=== PATIENT | female | born 1985 | race American Indian/Alaskan Native ===

== ENCOUNTER 2017-10-31 12:15 | Outpatient (CLI) | payer OTHER ==
[2017-10-31 13:13] VITALS: BP 120/77
--- NOTE | 2017-10-31 15:16 | Ultrasound Report ---
ULTRASOUND OB LIMITED History: well being, evaluate amniotic fluid Technique: Transabdominal ultrasound with Doppler interrogation. Gestation: Single Position: Cephalic Amniotic Fluid: Normal GRAHAM = 15.9 cm Heart Rate: 141 BPM
--- NOTE | 2017-10-31 15:16 | Ultrasound Report ---
ULTRASOUND BIOPHYSICAL PROFILE: History: well being Technique: Transabdominal ultrasound with Doppler interrogation. 2 - breathing movements 2 - movements 2 - posture and tone 2 - Qualitative amniotic fluid volume 8 - TOTAL SCORE OF POSSIBLE 8 Heart Rate (bpm) 141
== END 2017-10-31 14:55 | disposition home or self-care (01) ==
LOC: TRG 12:15
PROVIDERS: ATTEND Obstetrics & Gynecology
DX: O47.1 False labor at or after 37 completed weeks of gestation (principal); Z3A.39 39 weeks gestation of pregnancy
CPT/HCPCS: 59025; 76815; 76819

== ENCOUNTER 2017-11-01 19:45 | Inpatient (IN) | payer OTHER ==
--- NOTE | 2017-11-01 20:11 | History and Physical Report ---
History of Present Illness Date of examination: 11/01/17 Date of admission: 11/01/17 20:01 Chief complaint: Labor History of present illness: Pt is a 32yo BF EDC 11/04/17; EGA 39 4/7 weeks presents to L&D complaining of SROM clear fluid @ 5pm followed by RUC's q 3-4 mins. She received late care at [facility] , and course was unremarkable. records are available and GBS is Negative. Past History Past Medical History: no pertinent history Past Surgical History: no surgical history CASE CHECKER History: abnormal PAP smear Family/Genetic History: none Social history: no significant social history, single - Obstetrical History Expected Date of Delivery: 11/04/17 Actual Gestation: 39 Week(s) 4 Day(s) : 2 Medications and Allergies Allergies Allergy/AdvReac Type Severity Reaction Status Date / Time No Known Allergies Allergy Unverified 10/31/17 12:29 Home Medications Medication Instructions Recorded Confirmed Last Taken Type Pnv No.95/Ferrous Fum/Folic AC 1 each PO DAILY 10/31/17 10/31/17 Unknown History [Prenavite Tablet] Review of Systems All systems: negative - Physical Exam Breasts: Positive: deferred Cardiovascular: Regular rate Lungs: Positive: Clear to auscultation Abdomen: Positive: normal appearance Genitourinary (Female): Positive: normal external genitalia Vagina: Positive: normal moisture Uterus: Positive: enlarged Extremities: Positive: normal - Obstetrical FHR: category 1 Uterine Contraction Monitor Mode: External Cervical Dilatation: 10 Cervical Effacement Percentage: 100 station: +1 Uterine Contraction Pattern: Regular Uterine Tone Measurement Phase: Contraction Uterine Contraction Intensity: Moderate Results All other labs normal. Assessment and Plan - Patient Problems (1) 39 weeks gestation of Onset Date: 11/01/17 Current Visit: Yes Status: Acute Plan to address problem: A: IUP @ 39 4/7 weeks in labor P: Admit to L&D for expectant vaginal delivery
[2017-11-01] MEDS ORDERED: PITOCin/NS 20 UNIT/1000ML DRIP 20,000 MILLIUNITS/1,000 ML BAG IV ONE (20:24)
[2017-11-01] MEDS ORDERED: XYLOCAINE 2% INFILTRATI ONE (20:28)
[2017-11-01] MEDS ORDERED: SUBLIMAZE IV PRN (20:28)
[2017-11-01] MEDS ORDERED: STADOL IV PRN (20:28)
[2017-11-01] MEDS ORDERED: MINERAL OIL PO PRN (20:28)
[2017-11-01] MEDS ORDERED: BRETHINE IVP PRN (20:28)
[2017-11-01] MEDS ORDERED: ePHEDrine SULFATE IV PRN (20:28)
[2017-11-01] MEDS ORDERED: BRETHINE SUB-Q PRN (20:28)
[2017-11-01] MEDS ORDERED: PHENERGAN PR PRN (20:32)
[2017-11-01] MEDS ORDERED: DULCOLAX PR PRN (20:32)
[2017-11-01] MEDS ORDERED: LANSINOH TP PRN (20:32)
[2017-11-01] MEDS ORDERED: NORCO 5/325 PO PRN (20:32)
[2017-11-01] MEDS ORDERED: MILK OF MAGNESIA PO PRN (20:32)
[2017-11-01] MEDS ORDERED: BENADRYL PO PRN (20:32)
[2017-11-01] MEDS ORDERED: TYLENOL PO PRN (20:32)
[2017-11-01] MEDS ORDERED: ZOFRAN IV PRN (20:32)
[2017-11-01] MEDS ORDERED: PHENERGAN PO PRN (20:32)
[2017-11-01] MEDS ORDERED: TUCKS PAD TP PRN (20:32)
--- NOTE | 2017-11-01 20:38 | Procedure Note ---
OB Delivery Note - Delivery Date of Delivery: 11/01/17 Surgeon: ALAN AL Estimated blood loss: 100cc - Vaginal Delivery presentation: vertex Delivery position: OA Intrapartum events: PROM->1hr before delivery, precipitous labor- <3hr Delivery induction: none Delivery augmentation: rupture of membranes Delivery monitor: external FHT, external uterine Route of delivery: Delivery placenta: spontaneous Delivery cord: 3 umbilical vessels Episiotomy: none Delivery laceration: none Anesthesia: none Delivery comments: delivered OA and placed on Mom's chest for [id number] bonding and delayed cord clamping. - Infant A at 1 minute: 8 at 5 minutes: 9 Infant Gender: Male ([id number])
[2017-11-01] MEDS ORDERED: PITOCin/NS 20 UNIT/1000ML DRIP 20 UNITS/1,000 ML BAG IV SCH ×2 (21:00)
[2017-11-01] MEDS ORDERED: LACTATED RINGERS 1,000 ML IV SCH (21:00)
[2017-11-01] MEDS ORDERED: SODIUM CHLORIDE FLUSH SYRINGE 10 ML IV SCH (21:00)
[2017-11-01] MEDS ORDERED: PITOCin/NS 30 UNIT/500ML 30 UNITS/500 ML BAG IV SCH (21:00)
[2017-11-01 21:36] LABS: Hematocrit 39.7 % (30.3-42.9); Hemoglobin 13.2 gm/dl (10.1-14.3); Mean Corpuscular HGB Conc 33 % (30-34); Mean Corpuscular Hemoglobin 31 pg (28-32); Mean Corpuscular Volume 94 fl (79-97); Platelet Count 246 K/mm3 (140-440); Red Blood Count 4.22 M/mm3 (3.65-5.03); Red Cell Distribution Width 13.3 % (13.2-15.2)
[2017-11-01] MEDS ORDERED: COLACE PO SCH (22:00)
[2017-11-01] MEDS ORDERED: FEOSOL PO SCH (22:00)
[2017-11-02] MEDS: MOTRIN PO SCH ×2 (01:25→22:35)
[2017-11-02] MEDS ORDERED: BOOSTRIX IM ONE (06:00)
[2017-11-02] MEDS ORDERED: PRENATAL VITAMIN PO SCH (10:00)
[2017-11-02 10:59] LABS: Hematocrit 38.4 % (30.3-42.9); Hemoglobin 12.6 gm/dl (10.1-14.3)
--- NOTE | 2017-11-02 15:44 | Progress Note ---
Assessment and Plan - Patient Problems (1) 39 weeks gestation of Onset Date: 11/01/17 Current Visit: Yes Status: Resolved (2) (normal spontaneous vaginal delivery) Onset Date: 11/02/17 Current Visit: Yes Status: Resolved Plan to address problem: A: S/P - PPD #1 Doing well P: May go home tomorrow. Subjective - Subjective Date of service: 11/02/17 Principal diagnosis: s/p - PPD #1 Interval history: Pt is feeling well without complaints. Bleeding improved. Patient reports: appetite normal, voiding normally, pain well controlled, flatus , ambulating normally, no dizzy ambulation, no nauseated : doing well, nursing well Objective - Vital Signs Latest vital signs: Vital Signs Temp Pulse Resp BP BP Pulse Ox 11/02/17 09:14 98.5 F 95 H 20 96/74 99 11/02/17 03:37 97.6 F 89 18 105/64 11/02/17 01:25 18 11/02/17 00:32 98.8 F 96 H 18 108/69 99 11/01/17 23:22 84 100 11/01/17 23:17 81 98 11/01/17 23:12 90 99 11/01/17 23:07 85 100 11/01/17 22:50 95 H 97 11/01/17 22:45 90 98 11/01/17 22:40 97 H 98 11/01/17 22:27 98 H 100 11/01/17 22:22 101 H 100 11/01/17 22:14 101 H 95 11/01/17 22:13 187 H 120/58 11/01/17 22:09 102 H 95 11/01/17 22:04 101 H 97 11/01/17 21:59 68 73 L 11/01/17 21:58 100 H 134/66 11/01/17 21:54 103 H 98 11/01/17 21:49 101 H 97 11/01/17 21:44 96 H 99 11/01/17 21:43 99 H 121/65 11/01/17 21:31 98 H 91 11/01/17 21:28 93 H 122/64 100 11/01/17 21:23 89 64 L 11/01/17 21:18 94 H 98 11/01/17 21:13 91 H 133/79 100 11/01/17 21:12 88 76 L 11/01/17 21:08 94 H 100 11/01/17 21:03 95 H 100 11/01/17 20:58 93 H 127/76 98 11/01/17 20:56 97.8 F 94 H 18 127/76 100 11/01/17 20:53 97 H 100 11/01/17 20:48 92 H 100 11/01/17 20:43 90 133/83 99 Intake and Output 11/02/17 11/02/17 11/02/17 06:59 14:59 22:59 Intake Total 240 600 Output Total 900 Balance -660 600 Intake: Oral 480 Intake, Free Water 240 120 Output: Urine 900 Void 900 Other: Total, Intake Amount 480 Total, Output Amount 900 - Exam Breasts: Present: deferred Cardiovascular: Present: Regular rate Lungs: Present: Clear to auscultation Abdomen: Present: normal appearance Uterus: Present: normal, firm, fundal height below umbilicus Extremities: Present: normal - Labs Labs: Abnormal lab results 11/01/17 Range/Units 20:00 WBC 16.8 H (4.5-11.0) K/mm3 Laboratory Tests 11/01/17 11/01/17 11/02/17 20:00 20:00 10:37 WBC 16.8 H RBC 4.22 Hgb 13.2 12.6 Hct 39.7 38.4 MCV 94 MCH 31 MCHC 33 RDW 13.3 Plt Count 246 Blood Type A POSITIVE Antibody Screen Negative
--- NOTE | 2017-11-02 15:59 | Discharge Summary ---
Providers - Providers Date of Admission: 11/01/17 20:01 Date of discharge: 11/03/17 Attending physician: ALAN AL Primary care physician: ALAN AL Hospitalization Reason for admission: active labor, rupture of membranes, IUP at term Delivery: Episiotomy: none Laceration: none Other procedures: none complications: none Discharge diagnosis: IUP at term delivered baby: male Hospital course: Unremarkable. Condition at discharge: Good Disposition: DC-01 TO HOME OR SELFCARE - Discharge Diagnoses (1) 39 weeks gestation of Status: Resolved Plan - Discharge Medications Prescriptions: Ibuprofen [Motrin 600 MG tab] 600 mg PO Q6HR #30 tablet - Provider Discharge Summary Activity: routine, no sex for 6 weeks, no heavy lifting 4 weeks, no strenuous exercise Diet: routine Instructions: routine Additional instructions: [] Smoking cessation referral if applicable(refer to patient education folder for contact #) [] Refer to [facility] Booklet Call your doctor immediately for: * Fever > 100.5 * Heavy vaginal bleeding ( >1 pad per hour) * Severe persistent headache * Shortness of breath * Reddened, hot, painful area to leg or breast * Drainage or odor from incision. * Keep incision clean and dry at all times and follow doctor's instructions regarding bathing/showering - Follow up plan Follow up: ALAN AL MD [Primary Care Provider] - 6 Weeks
[2017-11-02] MEDS ORDERED: M-M-R II VACCINE SUB-Q ONE (20:32)
[2017-11-03] MEDS ORDERED: BOOSTRIX IM ONE (06:00)
[2017-11-03] MEDS: MOTRIN PO SCH (06:43)
[2017-11-03 15:21] VITALS: BP 103/64
== END 2017-11-03 13:30 | disposition home or self-care (01) | DRG 775 ==
LOC: TRG 19:45 → LD 20:01 → TRG 20:01 → OB 11-02 01:00
PROVIDERS: ADMIT Obstetrics & Gynecology; ATTEND Obstetrics & Gynecology
PROC: 10E0XZZ Delivery of Products of Conception, External Approach (ICD-10-PCS; principal; 2017-11-01)
PROC: 3E0234Z Introduction of Serum, Toxoid and Vaccine into Muscle, Percutaneous Approach (ICD-10-PCS; 2017-11-02)
DX: O62.3 Precipitate labor (principal); O42.02 Full-term premature rupture of membranes, onset of labor within 24 hours of rupture; Z3A.39 39 weeks gestation of pregnancy; Z37.0 Single live birth; Z23 Encounter for immunization
CPT/HCPCS: 36415; 85014; 85018; 85027; 86592; 86850; 86900; 86901; 99211; G0463; J2590